=== PATIENT | male | born 1945 | race African-American/Black ===

== ENCOUNTER 2018-12-14 05:37 | Inpatient (IN) | payer MEDICARE, MEDICAID ==
[~2018-12-14] VITALS: Ht 185.4 cm; Wt 90.7 kg
[2018-12-14] MEDS ORDERED: SODIUM CHLORIDE 0.9% 1,000 ML IV SCH (06:00)
[2018-12-14] MEDS ORDERED: TAMS-11 PO (07:12)
[2018-12-14] MEDS ORDERED: AMIT25TA9 PO (07:12)
[2018-12-14] MEDS ORDERED: METF-414 PO (07:12)
[2018-12-14] MEDS ORDERED: ATOR20TA65 PO (07:12)
[2018-12-14] MEDS ORDERED: DORZ10DR9 OP (07:12)
[2018-12-14] MEDS ORDERED: ASPI-1160 PO (07:12)
[2018-12-14] MEDS ORDERED: FLUO40CA49 PO (07:12)
[2018-12-14] MEDS ORDERED: LORA10TA7 PO (07:12)
[2018-12-14] MEDS ORDERED: HYDR-4001 PO (07:12)
[2018-12-14] MEDS ORDERED: ENAL10TA PO (07:12)
[2018-12-14] MEDS ORDERED: MIDAZOLAM HCL 2 MG/2 ML VIAL ONE ×2 (07:22→08:21)
[2018-12-14] MEDS ORDERED: PROPOFOL 200MG/20ML VIAL IV ONE (07:22)
[2018-12-14] MEDS ORDERED: FENTANYL CITRATE/PF 50MCG/ML 2ML VIAL ONE (07:22)
[2018-12-14] MEDS ORDERED: SODIUM CHLORIDE 0.9% 10ML VIAL ONE ×4 (07:23→07:34)
[2018-12-14] MEDS ORDERED: CEFAZOLIN SODIUM 1000MG/VIAL ONE (07:23)
[2018-12-14] MEDS ORDERED: SUCCINYLCHOLINE CHLORIDE 200MG/10ML IV ONE (07:23)
[2018-12-14] MEDS ORDERED: ROCURONIUM BROMIDE 10MG/ML VIAL 5ML IV ONE ×2 (07:23→09:48)
[2018-12-14] MEDS ORDERED: PHENYLEPHRINE HCL 10 MG/ML 1ML (IV VIAL) IV ONE (07:28)
[2018-12-14] MEDS ORDERED: BUPIVACAINE/EPINEPH/PF 0.25%/0.0005 10ML ONE ×2 (07:41→09:08)
[2018-12-14] MEDS ORDERED: EPINEPHRINE 1:1000 1 MG/ML AMP ONE (07:41)
[2018-12-14] MEDS ORDERED: LIDOCAINE HCL/EPINEPHRINE 1%-EPI 1:100,000 20 ML VIAL ONE (07:42)
[2018-12-14] MEDS ORDERED: LIDOCAINE HCL 2% 5ML SYRINGE IV ONE (07:43)
[2018-12-14] MEDS ORDERED: BUPIVACAINE HCL/PF 0.25% (2.5MG/ML) 10ML ONE (07:44)
[2018-12-14] MEDS ORDERED: MORPHINE SULFATE/PF 1MG/ML 10ML AMP ONE (09:09)
[2018-12-14] MEDS ORDERED: EPHEDRINE SULFATE 50MG/ML VIAL ONE (09:23)
[2018-12-14] MEDS ORDERED: DEXAMETHASONE 4MG/ML 1ML VIAL ONE (09:30)
[2018-12-14] MEDS ORDERED: ONDANSETRON HCL 4MG/2ML INJ ONE (11:37)
[2018-12-14] MEDS ORDERED: ACETAMINOPHEN 325MG TABLET PO PRN (12:00)
[2018-12-14] MEDS ORDERED: MORPHINE SULFATE 2 MG/ML CPJ (NOT FOR IM USE) IV PRN (12:00)
[2018-12-14] MEDS ORDERED: HYDROCODONE/ACETAMINOPHEN 10/325MG TABLET PO PRN ×2 (12:00)
[2018-12-14] MEDS ORDERED: MAGNESIUM HYDROXIDE 400MG/5ML 30ML UDC PO PRN (12:00)
[2018-12-14] MEDS ORDERED: ONDANSETRON HCL 4MG/2ML INJ IV PRN (12:00)
[2018-12-14] MEDS ORDERED: NEOSTIGMINE METHYLSULFATE 1MG/ML 10 ML VIAL ONE (12:03)
[2018-12-14] MEDS ORDERED: GLYCOPYRROLATE 0.2 MG/ML 2ML VIAL ONE (12:03)
[2018-12-14] MEDS ORDERED: HYDRALAZINE 20MG/ML VIAL ONE (12:17)
[2018-12-14 14:56] VITALS: BP 182/81
[2018-12-14] MEDS: CEFAZOLIN 2,000 MG in DEXT 5% WATER 100 ML IV SCH (17:26)
[2018-12-14] MEDS: DOCUSATE SODIUM 100MG CAPSULE PO SCH (17:27)
[2018-12-14] MEDS ORDERED: CLONIDINE 0.1MG TABLET PO PRN (19:15)
[2018-12-14] MEDS ORDERED: IPRATROPIUM/ALBUTEROL 0.5-3(2.5)MG/3ML NEB INH PRN (19:15)
[2018-12-14 20:00] VITALS: BP 138/81
[2018-12-14] MEDS: MORPHINE SULFATE 4 MG/ML CPJ (NOT FOR IM USE) IV PRN (20:58)
[2018-12-15] VITALS: BP 140/67
[2018-12-15] MEDS: CEFAZOLIN 2,000 MG in DEXT 5% WATER 100 ML IV SCH (02:43)
[2018-12-15] MEDS: MORPHINE SULFATE 4 MG/ML CPJ (NOT FOR IM USE) IV PRN (03:23)
[2018-12-15 04:00] VITALS: BP 117/68
[2018-12-15 07:53] LABS: BASOPHILS % 0.3 % (0.0-2.0); HEMATOCRIT. 35.1 % (42.0-52.0); HEMOGLOBIN. 12.1 g/dL (14.0-18.0); LYMPHOCYTES % 21.5 % (20.0-50.0); MEAN CORPUSCULAR HEMOGLOBIN 25.3 pg (28.0-32.0); MEAN CORPUSCULAR VOLUME 73.6 fL (80.0-94.0); MEAN PLATELET VOLUME 7.6 fl (7.4-10.4); MONOCYTES % 6.6 % (2.0-8.0); NEUTROPHILS % 71.6 % (40.0-76.0); PLATELET 255 x1000/uL (130-400); RED BLOOD CELL COUNT 4.77 mill/uL (4.7-6.1); RED CELL DISTRIBUTION WIDTH 17.1 % (11.6-14.6)
[2018-12-15 08:00] VITALS: BP 134/68
[2018-12-15] MEDS ORDERED: DEXTROSE 50% WATER 50ML SYRINGE IV PRN (08:15)
[2018-12-15 08:24] LABS: CHLORIDE 106 mEq/L (98-107)
[2018-12-15 08:31] LABS: LDL CHOLESTEROL 101 mg/dL (5-100)
[2018-12-15 08:33] LABS: HDL CHOLESTEROL 37 mg/dL (40-59)
[2018-12-15] MEDS: DOCUSATE SODIUM 100MG CAPSULE PO SCH (08:42)
[2018-12-15] MEDS ORDERED: ASPIRIN 81MG EC TABLET PO SCH (09:00)
[2018-12-15 12:00] VITALS: BP 157/84
[2018-12-15] MEDS ORDERED: BLOOD SUGAR DIAGNOSTIC STRIP TEST SCH (12:20)
[2018-12-15] MEDS ORDERED: ENALAPRIL 5MG TABLET PO SCH (12:45)
[2018-12-15] MEDS ORDERED: INSULIN LISPRO 100 UNITS/ML SUBCUT SCH (12:50)
[2018-12-15 13:23] VITALS: BP 157/84
== END 2018-12-15 14:10 | disposition home or self-care (01) | DRG 502 ==
LOC: OR 05:37 → 6EST 05:38
PROVIDERS: ADMIT Internal Medicine; ATTEND Internal Medicine
PROC: 0RNK0ZZ Release Left Shoulder Joint, Open Approach (ICD-10-PCS; principal; 2018-12-14)
PROC: 0LB24ZZ Excision of Left Shoulder Tendon, Percutaneous Endoscopic Approach (ICD-10-PCS; 2018-12-14)
PROC: 0RNK4ZZ Release Left Shoulder Joint, Percutaneous Endoscopic Approach (ICD-10-PCS; 2018-12-14)
PROC: 0MB24ZZ Excision of Left Shoulder Bursa and Ligament, Percutaneous Endoscopic Approach (ICD-10-PCS; 2018-12-14)
PROC: 0PBB4ZZ Excision of Left Clavicle, Percutaneous Endoscopic Approach (ICD-10-PCS; 2018-12-14)
DX: M75.102 Unspecified rotator cuff tear or rupture of left shoulder, not specified as traumatic (principal); M25.812 Other specified joint disorders, left shoulder; M75.22 Bicipital tendinitis, left shoulder; M19.012 Primary osteoarthritis, left shoulder; E11.9 Type 2 diabetes mellitus without complications; I10 Essential (primary) hypertension; N40.0 Benign prostatic hyperplasia without lower urinary tract symptoms; F32.9 Major depressive disorder, single episode, unspecified; B19.20 Unspecified viral hepatitis C without hepatic coma; D50.9 Iron deficiency anemia, unspecified; E78.1 Pure hyperglyceridemia; E78.5 Hyperlipidemia, unspecified; G89.29 Other chronic pain; K76.0 Fatty (change of) liver, not elsewhere classified; M65.812 Other synovitis and tenosynovitis, left shoulder; M75.42 Impingement syndrome of left shoulder; M77.9 Enthesopathy, unspecified; M94.212 Chondromalacia, left shoulder; Z79.84 Long term (current) use of oral hypoglycemic drugs; Z87.891 Personal history of nicotine dependence; D72.829 Elevated white blood cell count, unspecified
CPT/HCPCS: 36415; 71045; 80048; 80061; 82962; 83036; 88302; 97166; C1713; J0171; J0330; J0360; J0690; J1100; J2250; J2270; J2274; J2370; J2405; J2704; J2710; J3010; J3490; J7060; L3670